=== PATIENT | male | born 1975 | race Two or more races ===

== ENCOUNTER 2021-01-03 12:21 | Emergency (ER) | payer BC, MEDICAID ==
[~2021-01-03] VITALS: Ht 188 cm; Wt 100.9 kg
[~2021-01-03 12:21] MED LIST: LIDOcaine 1% 30ml preserv. free vial ONE
[2021-01-03 12:33] VITALS: BP 113/79
[2021-01-03] MEDS ORDERED: SULF1TAB45 PO (14:50)
[2021-01-03 15:22] LABS: URINE AMPHETAMINE SCREEN NEGATIVE (Neg); URINE BARBITUATE SCREEN NEGATIVE (Neg); URINE BENZODIAZEPINES SCREEN NEGATIVE (Neg); URINE CANNABINOID SCREEN POSITIVE (Neg); URINE COCAINE SCREEN NEGATIVE (Neg); URINE METHADONE SCREEN NEGATIVE (Neg); URINE OPIATE SCREEN NEGATIVE (Neg); URINE PHENCYCLIDINE SCREEN NEGATIVE (Neg)
== END 2021-01-03 14:58 | disposition home or self-care (01) ==
LOC: ER 12:21
DX: L03.011 Cellulitis of right finger (principal); Z88.1 Allergy status to other antibiotic agents
CPT/HCPCS: 10060; 80305; 99283; J2001

== ENCOUNTER 2022-03-12 19:48 | Emergency (ER) | payer MEDICAID ==
[~2022-03-12] VITALS: Ht 188 cm; Wt 94.1 kg
[2022-03-12 19:57] VITALS: BP 135/84
[2022-03-12] MEDS ORDERED: IBUP-860 PO (20:46)
== END 2022-03-12 21:14 | disposition home or self-care (01) ==
LOC: ER 19:49
DX: R20.2 Paresthesia of skin (principal); Z88.1 Allergy status to other antibiotic agents; Z91.041 Radiographic dye allergy status
CPT/HCPCS: 93005; 99283

== ENCOUNTER 2023-03-02 15:48 | Emergency (ER) | payer MEDICAID ==
[~2023-03-02] VITALS: Ht 188.6 cm; Wt 88.2 kg
[~2023-03-02 15:48] MED LIST changes: +IBUP-860 PO; -LIDOcaine 1% 30ml preserv. free vial ONE
[2023-03-03 00:41] VITALS: TEMP 97.9
[2023-03-03 01:37] LABS: URINE AMPHETAMINE SCREEN POSITIVE (Neg); URINE BARBITUATE SCREEN NEGATIVE (Neg); URINE BENZODIAZEPINES SCREEN NEGATIVE (Neg); URINE CANNABINOID SCREEN POSITIVE (Neg); URINE COCAINE SCREEN POSITIVE (Neg); URINE METHADONE SCREEN NEGATIVE (Neg); URINE OPIATE SCREEN NEGATIVE (Neg); URINE PHENCYCLIDINE SCREEN NEGATIVE (Neg)
[2023-03-03 02:11] VITALS: BP 137/88; PULSE 75; RESP 16; O2SAT 100
--- NOTE | 2023-03-03 02:20 | NUR ---
Patient refused to sign discharge paperwork. Patient educated and given discharge instructions. A/O x4, GCS 15.
== END 2023-03-03 02:30 | disposition home or self-care (01) ==
LOC: ER 15:49
DX: R51.9 Headache, unspecified (principal); Z53.21 Procedure and treatment not carried out due to patient leaving prior to being seen by health care provider
CPT/HCPCS: 80305; 99281; 99283